=== PATIENT | female | born 1955 | race Caucasian/White ===

== ENCOUNTER 2021-06-28 09:53 | Emergency (ER) | payer BC ==
[2021-06-28] MEDS ORDERED: Ondansetron PF 4 MG/2 ML Vial ONE ×2 (10:34→14:27)
[2021-06-28] MEDS ORDERED: Sodium Chloride 0.9% 1,000 ML ONE ×2 (10:34→14:25)
[2021-06-28] MEDS ORDERED: Promethazine HCl 25 MG/ML VIAL ONE (10:34)
[2021-06-28 11:18] LABS: #Lymphocytes 0.4 thou/uL (1.20-3.40); #Monocytes 0.2 thou/uL (0.11-0.59); #Neutrophils 3.7 thou/uL (1.40-6.50); %Basophils 0.8 % (0.0-1.0); %Lymphocytes 9.6 % (21.0-51.0); %Monocytes 4.7 % (0.0-10.0); Hemoglobin 13.7 g/dL (12.0-16.0); Mean Corpuscular HGB CONC 31.5 g/dL (32.0-36.0); Mean Corpuscular Hemoglobin 28.3 pg (27.0-31.0); Mean Platelet Volume 11.5 fL (7.4-10.4); Platelet Count 168 thou/uL (130-400); RBC Distribution Width 14.5 % (11.5-14.5); Red Blood Cell (RBC) Count 4.83 mill/uL (4.20-5.40); White Blood Cell (WBC) Count 4.4 thou/uL (4.8-10.8)
[2021-06-28 11:29] LABS: ALT (SGPT) 15 U/L (8-55); AST (SGOT) 18 U/L (5-34); Albumin 4.5 g/dL (3.4-4.8); Alkaline Phosphatase 121 U/L (40-110); Anion Gap 18 mmol/L (10-20); BUN (Urea Nitrogen) 16 mg/dL (9.8-20.1); Bilirubin, Total 1.5 mg/dL (0.2-1.2); Calc. Creatinine Clearance 0 mL/min (70-130); Calcium 10.1 mg/dL (7.8-10.44); Carbon Dioxide 21 mmol/L (23-31); Chloride 103 mmol/L (98-107); Globulin 3.9 g/dL (2.4-3.5); Glucose 154 mg/dL (80-115); Lipase 21 U/L (8-78); Potassium 3.6 mmol/L (3.5-5.1); Protein, Total 8.4 g/dL (5.8-8.1); Sodium 138 mmol/L (136-145)
[2021-06-28] MEDS ORDERED: Sodium Chloride 0.9% 0 ML ONE (11:54)
[2021-06-28] MEDS ORDERED: Metoclopramide HCl 10 MG/2 ML VIAL ONE (11:54)
[2021-06-28] MEDS ORDERED: Sodium Chloride 0.9% 100 ML ONE ×2 (11:55→13:01)
[2021-06-28 12:34] LABS: Bilirubin Small (Negative); Blood, Urine Negative (Negative); Glucose, Urine (Dipstick) Negative (Negative); Ketone, Urine Trace mg/dL (Negative); Leukocyte Negative (Negative); Nitrite Positive (Negative); Protein, Urine (Dipstick) Trace mg/dL (Neg-Trace)
[2021-06-28 12:39] LABS: Clarity Hazy (Clear)
[2021-06-28 12:42] LABS: Bacteria/HPF 3+ HPF (None Seen); RBC/HPF 0-3 HPF (0-3); Specific Gravity, Urine 1.022 (1.002-1.036); Transitional Epithelial 0-3 HPF (None Seen); WBC/HPF 0-3 HPF (0-3)
[2021-06-28] MEDS ORDERED: cefTRIAXone\\ROCEPHIN 1 GM VIAL ONE (13:01)
[2021-06-28] MEDS ORDERED: Pantoprazole 40 MG VIAL ONE (14:25)
== END 2021-06-28 15:19 | disposition home or self-care (01) ==
LOC: NAV ERS 09:53
DX: N39.0 Urinary tract infection, site not specified (principal); A08.4 Viral intestinal infection, unspecified; R11.2 Nausea with vomiting, unspecified; M19.90 Unspecified osteoarthritis, unspecified site; Z79.899 Other long term (current) drug therapy
CPT/HCPCS: 74176; 80053; 81003; 81015; 83690; 85025; 96365; 96367; 96372; 96375; 96376; C9113; J0696; J2405; J2550; J2765; J3490; J7050